=== PATIENT | female | born 1990 | race Two or more races ===

== ENCOUNTER 2016-10-16 18:13 | Emergency (ER) | payer SELFPAY ==
[~2016-10-16] VITALS: Ht 152.4 cm; Wt 49.9 kg
[2016-10-16 19:30] VITALS: BP 150/106
[2016-10-16 19:46] LABS: Urine Bilirubin Negative (Negative); Urine Blood Negative /uL (Negative); Urine Color Yellow (Yellow); Urine Glucose Normal (Normal); Urine Ketone Negative (Negative); Urine Mucus FEW (None Seen); Urine Nitrite Negative (Negative); Urine RBC 1 /hpf (0 - 4); Urine Squamous Epithelial Cell FEW /hpf (<5); Urine Urobilinogen Normal (Negative)
[2016-10-16 20:03] LABS: Basophils # (auto) 0 uL; Basophils % (auto) 0.5 % (0.0-2.0); CONDITION Y; Eosinophils # (auto) 0.1 uL; Eosinophils % (auto) 0.7 % (0.0-7.0); Hematocrit 42.9 % (36.0-46.0); Hemoglobin 14.1 g/dL (12.2-16.2); Lymphocytes # (auto) 1.6 uL; Lymphocytes % (auto) 18.5 % (10.0-50.0); Mean Corpuscular Hemoglobin 30.1 pg (28.0-32.0); Mean Corpuscular Hgb Conc. 32.8 g/dL (32.0-36.0); Mean Corpuscular Volume 91.8 fL (80.0-100.0); Mean Platelet Volume 8.8 fL (7.4-10.4); Monocytes # (auto) 0.5 uL; Monocytes % (auto) 5.9 % (0.0-12.0); Neutrophils # (auto) 6.3 uL; Neutrophils % (auto) 74.4 % (37.0-80.0); Platelet Count (auto) 362 10^3/uL (140-450); Red Cell Distribution Width 17.6 % (11.6-16.0); White Blood Cell 8.4 10^3/uL (4.4-10.8)
== END 2016-10-16 21:11 | disposition home or self-care (01) ==
LOC: ER 18:16
DX: N39.0 Urinary tract infection, site not specified (principal); F12.10 Cannabis abuse, uncomplicated
CPT/HCPCS: 36415; 81001; 84702; 85025

== ENCOUNTER 2017-02-12 02:43 | Emergency (ER) | payer MEDICAID ==
[~2017-02-12] VITALS: Ht 152.4 cm; Wt 54.4 kg
[2017-02-12 05:00] VITALS: BP 140/80
== END 2017-02-12 05:30 | disposition home or self-care (01) ==
LOC: ER 02:47
DX: L03.116 Cellulitis of left lower limb (principal); Z90.89 Acquired absence of other organs

== ENCOUNTER 2017-06-02 22:10 | Emergency (ER) | payer MEDICAID ==
[~2017-06-02] VITALS: Ht 152.4 cm; Wt 54.4 kg
[2017-06-02 22:47] VITALS: BP 156/91
[2017-06-02 23:18] LABS: Basophils # (auto) 0 uL; Basophils % (auto) 0.3 % (0.0-2.0); Eosinophils # (auto) 0 uL; Eosinophils % (auto) 0.1 % (0.0-7.0); Hematocrit 37.3 % (36.0-46.0); Hemoglobin 12.2 g/dL (12.2-16.2); Lymphocytes # (auto) 0.8 uL; Lymphocytes % (auto) 6.1 % (10.0-50.0); Mean Corpuscular Hemoglobin 29.8 pg (28.0-32.0); Mean Corpuscular Hgb Conc. 32.8 g/dL (32.0-36.0); Mean Corpuscular Volume 90.9 fL (80.0-100.0); Monocytes # (auto) 0.9 uL; Monocytes % (auto) 6.3 % (0.0-12.0); Neutrophils % (auto) 87.2 % (37.0-80.0); Platelet Count (auto) 352 10^3/uL (140-450); Red Blood Cells 4.11 10^6/uL (4.0-5.20); Red Cell Distribution Width 16.3 % (11.8-14.3); White Blood Cell 13.8 10^3/uL (4.4-10.8)
[2017-06-02 23:37] LABS: Albumin 3.8 g/dL (3.4-5.0); BUN/Creatinine Ratio 12.5; Calcium 8.8 mg/dL (8.5-10.1); Potassium 3.9 mmol/L (3.5-5.1)
[2017-06-02 23:40] LABS: Bilirubin, Total 0.8 mg/dL (0.2-1.0); Total Protein 7.6 g/dL (6.4-8.2)
[2017-06-03 01:42] LABS: Urine Bacteria MANY /hpf (None Seen); Urine Blood Negative /uL (Negative); Urine Mucus FEW (None Seen); Urine Specific Gravity 1.023 (1.001-1.035); Urine WBC 15 /hpf (0 - 5)
[2017-06-03 01:44] LABS: Alcohol, Urine < 3.0 mg/dL (0-5); Amphetamine Screen, Urine POSITIVE (NEGATIVE); Barbiturate Scree,Urine NEGATIVE (NEGATIVE); Benzodiazephine Screen, Urine NEGATIVE (NEGATIVE); Cannabinoid Screen, Urine POSITIVE (NEGATIVE); Cocaine Screen, Urine NEGATIVE (NEGATIVE); Opiate Scree,Urine NEGATIVE (NEGATIVE); Phencyclidine Screen, Urine NEGATIVE (NEGATIVE)
== END 2017-06-03 02:01 | disposition left against medical advice (07) ==
LOC: EDBD 22:10 → ER 22:21
DX: N39.0 Urinary tract infection, site not specified (principal); N20.0 Calculus of kidney; F15.10 Other stimulant abuse, uncomplicated; F12.10 Cannabis abuse, uncomplicated; F17.210 Nicotine dependence, cigarettes, uncomplicated
CPT/HCPCS: 36415; 74176; 80053; 80307; 81001; 82150; 83690; 84702; 85025

== ENCOUNTER 2019-05-19 20:25 | Emergency (ER) | payer MEDICAID ==
[~2019-05-19] VITALS: Ht 165.1 cm; Wt 55.8 kg
[2019-05-19 20:30] VITALS: BP 140/95
== END 2019-05-20 01:35 | disposition left against medical advice (07) ==
LOC: EDBD 20:25 → ER 20:26
DX: R05 Cough (principal); Z53.21 Procedure and treatment not carried out due to patient leaving prior to being seen by health care provider

== ENCOUNTER 2019-08-16 22:42 | Emergency (ER) | payer MEDICAID ==
[~2019-08-16] VITALS: Ht 152.4 cm; Wt 49.9 kg
[2019-08-16 23:16] VITALS: BP 145/98
[2019-08-16 23:57] LABS: Basophils # (auto) 0 10 ^3/uL (0-0.2); Basophils % (auto) 0.3 % (0.0-2.0); Eosinophils # (auto) 0.1 10 ^3/uL (0-0.8); Eosinophils % (auto) 1.1 % (0.0-7.0); Hemoglobin 13.7 g/dL (12.2-16.2); Lymphocytes # (auto) 1.7 10 ^3/uL (0.4-5.4); Lymphocytes % (auto) 18.6 % (10.0-50.0); Mean Corpuscular Hemoglobin 28.2 pg (28.0-32.0); Mean Corpuscular Hgb Conc. 31.8 g/dL (32.0-36.0); Mean Corpuscular Volume 88.9 fL (80.0-100.0); Monocytes # (auto) 0.6 10 ^3/uL (0-1.3); Neutrophils # (auto) 6.7 10 ^3/uL (1.6-8.6); Platelet Count (auto) 395 10^3/uL (140-450); Red Blood Cells 4.84 10^6/uL (4.0-5.20); Red Cell Distribution Width 17.5 % (11.8-14.3); White Blood Cell 9.2 10^3/uL (4.4-10.8)
[2019-08-17 00:25] LABS: BUN/Creatinine Ratio 12.5; Calcium 8.8 mg/dL (8.5-10.1); Potassium 4.1 mmol/L (3.5-5.1)
== END 2019-08-17 02:00 | disposition left against medical advice (07) ==
LOC: ER 22:42
DX: R10.84 Generalized abdominal pain (principal); Z53.21 Procedure and treatment not carried out due to patient leaving prior to being seen by health care provider
CPT/HCPCS: 36415; 74176; 80048; 85025

== ENCOUNTER 2020-10-12 19:16 | Emergency (ER) | payer MEDICAID ==
[~2020-10-12] VITALS: Ht 152.4 cm; Wt 56.7 kg
[2020-10-12] MEDS ORDERED: SODIUM CHLORIDE 0.9% 1,000 ML IV ONE (19:30)
[2020-10-12 19:48] VITALS: BP 152/104
[2020-10-12 19:54] LABS: Basophils # (auto) 0.1 10 ^3/uL (0-0.2); Basophils % (auto) 0.8 % (0.0-2.0); Eosinophils # (auto) 0.1 10 ^3/uL (0-0.8); Hematocrit 38.8 % (36.0-46.0); Hemoglobin 13.4 g/dL (12.2-16.2); Lymphocytes # (auto) 1.7 10 ^3/uL (0.4-5.4); Lymphocytes % (auto) 21.7 % (10.0-50.0); Mean Corpuscular Hemoglobin 31.4 pg (28.0-32.0); Mean Corpuscular Hgb Conc. 34.5 g/dL (32.0-36.0); Mean Corpuscular Volume 90.9 fL (80.0-100.0); Monocytes # (auto) 0.7 10 ^3/uL (0-1.3); Monocytes % (auto) 8.4 % (0.0-12.0); Neutrophils # (auto) 5.3 10 ^3/uL (1.6-8.6); Neutrophils % (auto) 68.1 % (37.0-80.0); Red Blood Cells 4.26 10^6/uL (4.0-5.20); Red Cell Distribution Width 15.1 % (11.8-14.3); White Blood Cell 7.8 10^3/uL (4.4-10.8)
[2020-10-12 20:12] LABS: Anion Gap 5 (5-15); Blood Urea Nitrogen 13 mg/dL (7-18); Carbon Dioxide 23 mmol/L (21-32); Chloride 112 mmol/L (98-107); Glucose 83 mg/dL (74-106); Potassium 4.1 mmol/L (3.5-5.1); Sodium 140 mmol/L (136-145)
[2020-10-12 20:19] LABS: Alanine Aminotransferase 13 U/L (13-56); Alkaline Phosphatase 82 U/L (45-117); Aspartate Aminotransferase 13 U/L (15-37); BUN/Creatinine Ratio 16.7; Bilirubin, Total 0.4 mg/dL (0.2-1.0); GFR African American 112 mL/min; GFR Non-African American 92 mL/min; Total Protein 7.8 g/dL (6.4-8.2)
[2020-10-12 21:17] LABS: Alcohol, Urine < 3.0 mg/dL (0-10); Amphetamine Screen, Urine POSITIVE (NEGATIVE); Barbiturate Scree,Urine NEGATIVE (NEGATIVE); Benzodiazephine Screen, Urine NEGATIVE (NEGATIVE); Cannabinoid Screen, Urine POSITIVE (NEGATIVE); Cocaine Screen, Urine NEGATIVE (NEGATIVE); Opiate Scree,Urine NEGATIVE (NEGATIVE); Phencyclidine Screen, Urine NEGATIVE (NEGATIVE)
== END 2020-10-12 21:25 | disposition home or self-care (01) ==
LOC: ER 19:16 → EDBD 19:16 → ER 21:25
DX: R55 Syncope and collapse (principal); R07.89 Other chest pain; F17.210 Nicotine dependence, cigarettes, uncomplicated; F12.10 Cannabis abuse, uncomplicated; F15.10 Other stimulant abuse, uncomplicated; Z90.89 Acquired absence of other organs
CPT/HCPCS: 36415; 80053; 80307; 81025; 84484; 85025; 85049; 93005; 96360; 99284; J7030

== ENCOUNTER 2024-02-16 21:36 | Emergency (ER) | payer MEDICAID ==
[~2024-02-16] VITALS: Ht 170.2 cm; Wt 59.0 kg
--- NOTE | 2024-02-16 22:08 | ED.PDOC ---
History of Present Illness(SKN HPI Comments 33 y.o female presents to the ED via EMS for an evaluation of a dog bite. Per triage nurse, patient came in s/p brother's dog bit her left index finger and latched on for a couple of minutes. Nurse reports that EMS gave 100mcg of Fentanyl en route. Patient is updated on her tetanus shot. No bleeding, disc harge, fever, or chills reported. No medical history reported. Vital signs were stable at arrival. Chief Complaint: Animal Bite Time Seen by MD: 22:00 Primary Care Provider: Contreras Garcia History of Present Illness: Nurses Notes, Patent Drafter Notes, Medications, Allergies Allergies: Coded Allergies: NO KNOWN ALLERGIES (Unverified , 09/04/15) Home Meds No Active Prescriptions or Reported Meds Information Source: Emergency Med Personnel Mode of Arrival: EMS Severity: Mild, Moderate Timing: Hours Duration: Since onset Prehospital treatment: None Location: Hand Mechanism: Dog Wound Type: Puncture Immunization Status of Animal: Unknown Tetanus: UTD Associated Signs and Symptoms: Swelling Past Medical History PAST MEDICAL HISTORY: Denies Surgical History: Appendectomy CONTROL SYSTEMS SPECIALIST History: No Pertinent CONTROL SYSTEMS SPECIALIST History Family History Family History: Family hx of DM, Family hx of Cancer, Family hx of heart ruben Social History Smoker: Cigarettes, Greater Than 1 Pack/Day Alcohol: Denies ETOH Use Drugs: Marijuana, Methamphetamine Lives In: Home Constitutional: denies: chills, diaphoresis, fatigue, fever, malaise, sweats, weakness, others EENTM: denies: blurred vision, double vision, ear bleeding, ear discharge, ear drainage, ear pain, ear ringing, eye pain, eye redness, hearing loss, mouth pain, mouth swelling, nasal discharge, nose bleeding, nose congestion, nose pain, photophobia, tearing, throat pain, throat swelling, voice changes, others Respiratory: denies: cough, hemoptysis, orthopnea, SOB at rest, shortness of breath, SOB with excertion, stridor, wheezing, others Cardiovascular: denies: chest pain, dizzy spells, diaphoresis, Dyspnea on exertion, edema, irregular heart beat, left arm pain, lightheadedness, palpit ations, PND, syncope, others Gastrointestinal: denies: abdomen distended, abdominal pain, blood streaked b owels, constipated, diarrhea, dysphagia, difficulty swallowing, hematemesis, melena, nausea, poor appetite, poor fluid intake, rectal bleeding, rectal pain, vomiting, others Genitourinary: denies: abnormal vagina bleeding, burning, dyspareunia, dysuria, flank pain, frequency, hematuria, incontinence, pain, , vagina discharge, urgency, others Neurological: denies: dizziness, fainting, headache, left sided numbness, left sided weakness, numbness, paresthesia, pre-existing deficit, right sided numbness, right sided weakness, seizure, speech problems, tingling, tremors, weakness, others Musculoskeletal: denies: back pain, gout, joint pain, joint swelling, muscle pain, muscle stiffness, neck pain, others Integumetry: reports: others (left index finger bite); denies: bruises, change in color, change in hair/nails, dryness, laceration, lesions, lumps, rash, wounds Allergic/Immunocompromised: denies: Difficulty Healing, Frequent Infections, Hives, Itching, others Hematologic/Lymphatic: denies: anemia, blood clots, easy bleeding, easy bruising, swollen glands, others Endocrine: denies: excessive hunger, excessive sweating, excessive thirst, excessive urination, flushing, intolerance to cold, intolerance to heat, un explained weight gain, unexplained weight loss, others Psychiatric: denies: anxiety, bipolar disorder, depression, hopeless, panic disorder, schizophrenia, sleepless, suicidal, others All Other Systems: Reviewed and Negative Physical Exam General Appearance: Mild Distress (Due to dog bite concerns.), Normal HEENT: Normal ENT Inspection, Pharynx Normal, TMs Normal Neck: Full Range of Motion, Non-Tender, Normal, Normal Inspection Respiratory: Chest Non-Tender, Lungs Clear, No Accessory Muscle Use, No Respiratory Distress, Normal Breath Sounds Cardiovascular: No Edema, No JVD, No Murmur, No Gallop, Normal Peripheral Pulses, Regular Rate/Rhythm Breast Exam: Deferred Gastrointestinal: No Organomegaly, Non Tender, No Pulsatile Mass, Normal Bowel Sounds, Soft Genitalia: Deferred Pelvic: Deferred Rectal: Deferred Extremities: No calf tenderness, Normal capillary refill, Normal inspection, Normal range of motion, Non-tender, No pedal edema Neurologic: Alert, operations officer afloat II-XII nml as Tested, No Motor Deficits, Normal Affect, Normal Mood, No Sensory Deficits Cerebellar Function: Normal Reflexes: Normal Skin: Other (Abrasion/laceration noted to the distal right index finger with a ecchymosis on the nail. No active bleed. Minimal edema.) Lymphatic: No Adenopathy Was a procedure done? Was a procedure done?: No Differential Diagnosis (INTG) Differential Diagnosis: Other (Dog bite) X-Ray, Labs, Meds, VS Vital Signs Date Time Temp Pulse Resp B/P (MAP) Pulse Ox O2 Delivery O2 Flow Rate FiO2 02/16/24 21:45 98.9 92 18 160/102 (121) 92 X-Ray, Labs, Meds, VS Comment Patient's dog bite was inconsequential and did not require additional intervention. Clean dressing applied and patient was given her 1st dose of antibiotics. Time of 1ST Reevaluation: 23:26 Reevaluation 1ST: Improved Consultation: PCP Patient Education/Counseling: Diagnosis, Treatment, Prognosis Family Education/Counseling: Diagnosis, Treatment, No Family Present Departure 1 Departure Time of Disposition: 23:27 Impression: Primary Impression: Dog bite Disposition: HOME / SELF CARE / HOMELESS Condition: Stable Additional Instructions: Advised patient utilize antibiotics as directed until completion as well as pain medication as needed. Patient should keep the wound clean and dressed until it has healed appropriately. e-Prescriptions Acetaminophen (Acetaminophen) 500 Mg Tab 500 MG PO Q4HP PRN, #20 TAB Prov: NEELAM NUNN PAC 02/16/24 Amoxicillin & Pot Clavulanate (AUGMENTIN TABLET) 875 Mg Tb 875 MG PO BID for 7 Days, #14 TAB Prov: NEELAM NUNN PAC 02/16/24 Discharged With: Self, Friend Critical Care Note Critical Care Time?: No Stability Stability form required: No I personally scribed for NEELAM NUNN PAC ([email or web address]) on 02/16/24 at 22:08. Electronically submitted by Cheryle Cartagena ([facility]). NEELAM NUNN PAC Feb 16, 2024 22:08
[2024-02-16] MEDS: AMOXICILLIN/CLAVUL 875 MG TAB PO ONE (23:25)
[2024-02-16 23:26] VITALS: BP 142/88; PULSE 92; RESP 18; TEMP 98.3; O2SAT 100
[2024-02-16] MEDS ORDERED: AUG875T PO (23:28)
[2024-02-16] MEDS ORDERED: ACET500T58 PO (23:28)
== END 2024-02-16 23:36 | disposition home or self-care (01) ==
LOC: EDBD 21:36 → ER 21:36
DX: S61.210A Laceration without foreign body of right index finger without damage to nail, initial encounter (principal); F17.210 Nicotine dependence, cigarettes, uncomplicated; F15.90 Other stimulant use, unspecified, uncomplicated; Z90.49 Acquired absence of other specified parts of digestive tract; W54.0XXA Bitten by dog, initial encounter; Y93.89 Activity, other specified; Y92.89 Other specified places as the place of occurrence of the external cause; Y99.8 Other external cause status

== ENCOUNTER 2024-05-29 05:52 | Emergency (ER) | payer MEDICAID ==
[~2024-05-29] VITALS: Ht 152.4 cm; Wt 57.5 kg
[~2024-05-29 05:52] MED LIST: ACET500T58 PO; AUG875T PO
[2024-05-29] MEDS ORDERED: CIPR1SUS8 OT (06:58)
[2024-05-29] MEDS ORDERED: AUG875T PO (06:58)
--- NOTE | 2024-05-29 06:58 | ED.PDOC ---
Eye-HPI HPI Comments 34-year-old female with no MHx presents with a chief complaint of left ear otalgia x1 day Pain rated moderate to severe and has not tried medications for the symptoms listed above Pain described as persistent throbbing No other complaint or concern Denies high fevers diplopia headache Denies blunt trauma (hand blow to the ear, fall, direct hit) Denies penetrating trauma (Q-tip use, match-stick, gunshot wound, welding spark) Denies ear trauma Denies barotrauma Denies blast injury Denies air travel Denies scuba diving Denies hearing loss Denies persistent ringing in the ear Denies fever chills night sweats unintentional weight loss Denies nausea vomiting severe headache or recent vision changes Chief Complaint: Earache Time Seen by MD: 06:29 Primary Care Provider: Contreras Garcia Reviewed Notes: Nurses Notes, Medications, Allergies Allergies: Coded Allergies: NO KNOWN ALLERGIES (Unverified , 09/04/15) Home Meds Active Scripts Amoxicillin & Pot Clavulanate (AUGMENTIN TABLET) 875 Mg Tb, 875 MG PO BID for 7 Days, #14 TAB 0 Refills Prov:GINNA NICOLE PNEUDRAULIC SYSTEMS MECHANIC 05/29/24 Ciprofloxacin-Dexamethasone (Ciprofloxacin/Dexamethaso 0.3-0.1 %) 1 Veronica Veronica, 4 DROP OT BID for 7 Days, #5 ML 0 Refills Prov:GINNA NICOLE PNEUDRAULIC SYSTEMS MECHANIC 05/29/24 Acetaminophen (Acetaminophen) 500 Mg Tab, 500 MG PO Q4HP PRN, #20 TAB Prov:NEELAM NUNN PAC 02/16/24 Amoxicillin & Pot Clavulanate (AUGMENTIN TABLET) 875 Mg Tb, 875 MG PO BID for 7 Days, #14 TAB Prov:NEELAM NUNN PAC 02/16/24 Mode of Arrival: Ambulatory Past Medical History PAST MEDICAL HISTORY: Denies Surgical History: Appendectomy AIR DISPATCHER History: No Pertinent AIR DISPATCHER History Family History Family History: Family hx of DM, Family hx of Cancer, Family hx of heart ruben Social History Smoker: Cigarettes, Greater Than 1 Pack/Day Alcohol: Denies ETOH Use Drugs: Marijuana, Methamphetamine Lives In: Home All Other Systems: Reviewed and Negative (Per HPI) Physical Exam General Appearance: No Apparent Distress, Normal HEENT: Normal ENT Inspection, Pharynx Normal, TM Abnormal (L) (Pre post auricular lymphadenopathy, erythema, swelling. No pain to the tragus on palpation. No signs of mastoiditis. Nose clear however tympanic membrane is erythematous bulging. EOM intact..) Neck: Full Range of Motion, Non-Tender, Normal, Normal Inspection Respiratory: Chest Non-Tender, Lungs Clear, No Accessory Muscle Use, No Respiratory Distress, Normal Breath Sounds Cardiovascular: No Edema, No JVD, No Murmur, No Gallop, Normal Peripheral Pulses, Regular Rate/Rhythm Breast Exam: Deferred Gastrointestinal: No Organomegaly, Non Tender, No Pulsatile Mass, Normal Bowel Sounds, Soft Genitalia: Deferred Pelvic: Deferred Rectal: Deferred Extremities: No calf tenderness, Normal capillary refill, Normal inspection, Normal range of motion, Non-tender, No pedal edema Musculoskeletal : Apperance: Normal Neurologic: Alert, carpenter II-XII nml as Tested, No Motor Deficits, Normal Affect, Normal Mood, No Sensory Deficits Cerebellar Function: Normal Reflexes: Normal Skin: Dry, Normal Color, Warm Lymphatic: No Adenopathy Was a procedure done? Was a procedure done?: No EENT DIFF Eye: Other Ear: Cerumen Impaction, Foreign Body, Otitis Media, Perforation X-Ray, Labs, Meds, VS Vital Signs Date Time Temp Pulse Resp B/P (MAP) Pulse Ox O2 Delivery O2 Flow Rate FiO2 05/29/24 07:23 98.4 101 20 152/94 (113) 98 98.4 05/29/24 07:23 101 20 98 Room Air 05/29/24 06:13 98.4 11 20 164/110 (128) 98 Current Medications Medications (Trade) Dose Ordered Sig/Fede Route Start Time Stop Time Status Last Admin Acetaminophen/ Hydrocodone Bitart (Warren 5/325MG Tab) 1 tab ONCE ONCE PO 05/29/24 07:00 05/29/24 07:01 DC 05/29/24 07:15 X-Ray, Labs, Meds, VS Comment Urticarial presents with a chief complaint of left ear otalgia Differentials considered but not limited to bullous myringitis, eustachian tube dysfunction, cholesteatoma, mastoiditis, meningitis. Exam and history are most consistent with Acute Otitis Media. No diabetes, immunosuppression. Rx: Augmentin In the ER patient received Warren x1 for pain relief with no side effects. On reevaluation, patient had symptomatic improvement. Patient is stable for discharge at this time. External notes reviewed. Test results and diagnostic imaging interpreted. All diagnostic findings, discharge care, education and instructions provided Follow-up with PCP in 2 to 3 days Patient verbalized understanding and agreed to treatment plan Vital signs stable, afebrile, no acute distress noted Patient ambulatory with strong steady gait Advised to return precautions for any new or worsening symptoms, return to ER immediately for re-evaluation Patient is aware that the purpose of this visit was for an acute medical emergency requiring emergent stabilization. Chronic conditions, including malignancies have not been ruled out. Patient is instructed to follow up with PCP as directed and discharge instructions for continued care and workup. If unable to arrange follow-up, patient is to return to the emergency department for reassessment. Patient (parent or legal guardian if applicable) was given verbal and written discharge instructions and acknowledges understanding. Time of 1ST Reevaluation: 06:45 Reevaluation 1ST: Improved Patient Education/Counseling: Diagnosis, Treatment Family Education/Counseling: Diagnosis, Treatment Departure 1 Departure Time of Disposition: 06:57 Impression: Primary Impression: AOM (acute otitis media) Qualified Codes: H66.002 - Acute suppurative otitis media without spontaneous rupture of ear drum, left ear Disposition: 01 HOME / SELF CARE / HOMELESS Condition: Stable e-Prescriptions Amoxicillin & Pot Clavulanate (AUGMENTIN TABLET) 875 Mg Tb 875 MG PO BID for 7 Days, #14 TAB 0 Refills Prov: GINNA NICOLE NP 05/29/24 Ciprofloxacin-Dexamethasone (Ciprofloxacin/Dexamethaso 0.3-0.1 %) 1 Veronica Veronica 4 DROP OT BID for 7 Days, #5 ML 0 Refills Prov: GINNA NICOLE PNEUDRAULIC SYSTEMS MECHANIC 05/29/24 Critical Care Note Critical Care Time?: No Stability Stability form required: No Heart Score Heart Score: Heart Score Response (Comments) Value History N/A 0 EKG N/A 0 Age N/A 0 Risk Factors N/A 0 Troponin N/A 0 Total 0 GINNA NICOLE NP May 29, 2024 06:58
[2024-05-29] MEDS: HYDROcodone-ACET 5/325MG TAB PO ONE (07:15)
[2024-05-29 07:23] VITALS: BP 152/94; PULSE 101; RESP 20; TEMP 98.4; O2SAT 98
== END 2024-05-29 07:26 | disposition home or self-care (01) ==
LOC: ER 05:52
DX: H66.92 Otitis media, unspecified, left ear (principal); F17.210 Nicotine dependence, cigarettes, uncomplicated; Z90.49 Acquired absence of other specified parts of digestive tract; Z79.2 Long term (current) use of antibiotics; Z79.899 Other long term (current) drug therapy

== ENCOUNTER 2024-05-29 21:16 | Emergency (ER) | payer MEDICAID ==
[~2024-05-29] VITALS: Ht 160 cm; Wt 63.6 kg
[~2024-05-29 21:16] MED LIST changes: +CIPR1SUS8 OT
[2024-05-29 21:33] VITALS: BP 181/116; RESP 24; O2SAT 95
[2024-05-29] MEDS ORDERED: cefTRIAXone 1GM/50ML D5W 50 ML IV ONE (21:45)
[2024-05-29] MEDS ORDERED: SODIUM CHLORIDE 0.9% 1,000 ML IV ONE (21:45)
[2024-05-29] MEDS ORDERED: KETOROLAC TROMETH 30 MG/ML 1ML VIAL IV ONE (21:45)
[2024-05-29 21:59] LABS: Basophils # (auto) 0 10 ^3/uL (0-0.2); Basophils % (auto) 0.5 % (0.0-2.0); Eosinophils # (auto) 0.1 10 ^3/uL (0-0.8); Eosinophils % (auto) 0.8 % (0.0-7.0); Hematocrit 38.4 % (36.0-46.0); Hemoglobin 12.6 g/dL (12.2-16.2); Lymphocytes # (auto) 1.5 10 ^3/uL (0.4-5.4); Lymphocytes % (auto) 17.3 % (10.0-50.0); Mean Corpuscular Hemoglobin 29.8 pg (28.0-32.0); Mean Corpuscular Hgb Conc. 32.8 g/dL (32.0-36.0); Mean Corpuscular Volume 90.8 fL (80.0-100.0); Monocytes # (auto) 0.8 10 ^3/uL (0-1.3); Monocytes % (auto) 8.7 % (0.0-12.0); Neutrophils # (auto) 6.4 10 ^3/uL (1.6-8.6); Neutrophils % (auto) 72.7 % (37.0-80.0); Nucleated Red Blood Cells % 0.1 %; Platelet Count (auto) 380 10^3/uL (140-450); Red Blood Cells 4.23 10^6/uL (4.0-5.20); Red Cell Distribution Width 15.1 % (11.8-14.3); White Blood Cell 8.9 10^3/uL (4.4-10.8)
[2024-05-29 22:10] LABS: Anion Gap 10 (5-15); Carbon Dioxide 23 mmol/L (20-31); Chloride 106 mmol/L (98-107); Potassium 4.4 mmol/L (3.5-5.1); Sodium 139 mmol/L (136-145)
[2024-05-29 22:11] LABS: Calcium 9.8 mg/dL (8.7-10.4)
[2024-05-29 22:16] LABS: BUN/Creatinine Ratio 14.3 (10.0-20.0); Blood Urea Nitrogen 11 mg/dL (9-23); Glucose 105 mg/dL (74-106)
[2024-05-29 22:18] LABS: Blood Alcohol < 3.0 mg/dL (<10)
[2024-05-29 23:13] VITALS: PULSE 78
--- NOTE | 2024-05-29 23:13 | ED.PDOC ---
History of Present Illness HPI Comments 34 y/o F with a history of polysubstance abuse BIBA for c/o ALOC today. Per EMS report, patient's family called after finding the patient with altered mental status, but is unclear exactly what was exhibited. EMS reports the patient was found alert, oriented x4 and complaining of chest discomfort. Patient was noted to be tachycardic. She states she took 3 tramadol and 1 Keeling due to pain in her left ear. Patient reports being in the ED yesterday for the ear pain and being diagnosed with an ear infection. Patient also reports having palpitations and shortness of breath in addition to left-ear pain. Patient denies having any chest pain, nausea, vomiting, fever, chills, weakness, or other associated symptoms or modifiers at this time. Chief Complaint: Palpitations Time Seen by MD: 21:30 Primary Care Provider: Contreras Garcia Reviewed Notes: Nurses Notes, Printing Supplies Sales Representative Notes, Medications, Allergies Allergies: Coded Allergies: NO KNOWN ALLERGIES (Unverified , 09/04/15) Home Meds Active Scripts Amoxicillin & Pot Clavulanate (AUGMENTIN TABLET) 875 Mg Tb, 875 MG PO BID for 7 Days, #14 TAB 0 Refills Prov:GINNA NICLOE TICKETING AGENT 05/29/24 Ciprofloxacin-Dexamethasone (Ciprofloxacin/Dexamethaso 0.3-0.1 %) 1 Veronica Veronica, 4 DROP OT BID for 7 Days, #5 ML 0 Refills Prov:GINNA NICOLE TICKETING AGENT 05/29/24 Acetaminophen (Acetaminophen) 500 Mg Tab, 500 MG PO Q4HP PRN, #20 TAB Prov:NEELAM NUNN PAC 02/16/24 Amoxicillin & Pot Clavulanate (AUGMENTIN TABLET) 875 Mg Tb, 875 MG PO BID for 7 Days, #14 TAB Prov:NEELAM NUNN PAC 02/16/24 Information Source: Patient, Emergency Med Personnel Mode of Arrival: EMS Severity: Moderate Timing: Hours Duration: Minutes Prehospital treatment: 12 Lead EKG, Customer Account Coordinator, IVF, Other (20G RAC) Past Medical History PAST MEDICAL HISTORY: Denies Surgical History: Appendectomy MARKETING PROGRAMS MANAGER History: No Pertinent MARKETING PROGRAMS MANAGER History Family History Family History: Family hx of DM, Family hx of Cancer, Family hx of heart ruben Social History Smoker: Cigarettes, Greater Than 1 Pack/Day Alcohol: Denies ETOH Use Drugs: Marijuana, Methamphetamine Lives In: Home All Other Systems: Reviewed and Negative (Comprehensive systems review obtained and negative except for what is stated in the HPI.) Physical Exam General Appearance: No Apparent Distress HEENT: PERRL/EOMI, Other (Dry mucous membranes) Neck: Full Range of Motion, Normal Inspection Respiratory: Lungs Clear, No Accessory Muscle Use, No Respiratory Distress, Normal Breath Sounds Cardiovascular: No Edema, No JVD, Regular Rate/Rhythm Breast Exam: Deferred Gastrointestinal: Non Tender, Soft Genitalia: Deferred Pelvic: Deferred Rectal: Deferred Extremities: Normal inspection, Normal range of motion, Non-tender, No pedal edema Neurologic: Alert (Oriented x4), Normal Affect, Normal Mood, Other (Moves all extremities. No gross focal deficit.) Cerebellar Function: NOT DONE Reflexes: NOT DONE Skin: Dry, Normal Color, Warm Lymphatic: NOT DONE Was a procedure done? Was a procedure done?: No EKG EKG : Pulse Rate (adult): 78 Comments Sinus rhythm, rate 78, normal intervals, normal axis, normal QRS, no ST/T changes. Differential Dx Considerations may include: Medication side-effect/accidental over medication, alcohol intoxication, drug intoxication, other encephalopathy, among others X-Ray, Labs, Meds, VS Vital Signs Date Time Temp Pulse Resp B/P (MAP) Pulse Ox O2 Delivery O2 Flow Rate FiO2 05/29/24 23:13 78 05/29/24 21:37 78 05/29/24 21:33 98.0 101 24 181/116 (137) 95 Lab Test 05/29/24 22:41 05/29/24 21:44 Range/Units Troponin I High Sensitivity < 3 L < 3 L </=34 ng/L White Blood Count 8.9 4.4-10.8 10^3/uL Red Blood Count 4.23 4.0-5.20 10^6/uL Hemoglobin 12.6 12.2-16.2 g/dL Hematocrit 38.4 36.0-46.0 % Mean Corpuscular Volume 90.8 80.0-100.0 fL Mean Corpuscular Hemoglobin 29.8 28.0-32.0 pg Mean Corpuscular Hemoglobin Concent 32.8 32.0-36.0 g/dL Red Cell Distribution Width 15.1 H 11.8-14.3 % Platelet Count 380 140-450 10^3/uL Mean Platelet Volume 8.0 6.9-10.8 fL Neutrophils (%) (Auto) 72.7 37.0-80.0 % Lymphocytes (%) (Auto) 17.3 10.0-50.0 % Monocytes (%) (Auto) 8.7 0.0-12.0 % Eosinophils (%) (Auto) 0.8 0.0-7.0 % Basophils (%) (Auto) 0.5 0.0-2.0 % Neutrophils # (Auto) 6.4 1.6-8.6 10 ^3/uL Lymphocytes # (Auto) 1.5 0.4-5.4 10 ^3/uL Monocytes # (Auto) 0.8 0-1.3 10 ^3/uL Eosinophils # (Auto) 0.1 0-0.8 10 ^3/uL Basophils # (Auto) 0 0-0.2 10 ^3/uL Nucleated Red Blood Cells 0.1 % Sodium Level 139 136-145 mmol/L Potassium Level 4.4 3.5-5.1 mmol/L Chloride Level 106 98-107 mmol/L Carbon Dioxide Level 23 20-31 mmol/L Anion Gap 10 5-15 Blood Urea Nitrogen 11 9-23 mg/dL Creatinine 0.77 0.550-1.02 mg/dL Glomerular Filtration Rate Calc 104 >90 mL/min BUN/Creatinine Ratio 14.3 10.0-20.0 Serum Glucose 105 74-106 mg/dL Lactic Acid Level 2.0 0.4-2.0 mmol/L Calcium Level 9.8 8.7-10.4 mg/dL B-Type Natriuretic Peptide 9.37 0-100 pg/mL Beta HCG, Quantitative 0.3 L 1.5-4.2 mIU/mL Plasma/Serum Blood Alcohol < 3.0 <10 mg/dL PROCEDURE(s): CXRP - CHEST PORTABLE REASON: aloc ORDER NUMBER(s): [id number], ACCESSION NUMBER(s): [id number] CHEST RADIOGRAPH Indication: aloc Technique: Single frontal view of the chest was obtained COMPARISON: None FINDINGS: Lines and Tubes: None Lungs: Clear Pleura: No effusion. No pneumothorax. Cardiomediastinal contours: Unremarkable Bones: Unremarkable IMPRESSION: No abnormality. X-Ray, Labs, Meds, VS Comment 34-year-old female with a history of prior polysubstance abuse brought in by EMS from home after initially being found with altered mental status. On arrival to ED, patient is alert, oriented x4 and complaining of palpitations. Admits to taking 3 tramadol and 1 Keeling this morning. Vitals remarkable for heart rate 101, respiratory rate 24, BP 181/116 Exam remarkable for tachycardia Rhythm strip independently interpreted by me: Sinus tach, rate 101, no ectopy. Chest x-ray unremarkable CBC, metabolic panel, BNP and troponins unremarkable, hCG negative, alcohol less than 3 Patient treated with the following in the ED: 1 L 0.9 normal saline IV bolus, Rocephin 1 g IV for treatment of her ear infection, Toradol 30 mg IV for pain. Prior to my re-evaluation, the patient stated she went to wait any longer. She signed out against medical advice. I was not advised that the patient signed out against medical advice until after she had left the ED. Time of 1ST Reevaluation: 22:00 Reevaluation 1ST: Unchanged Patient Education/Counseling: Diagnosis, Treatment Family Education/Counseling: No Family Present Additional Information - I reviewed the following notes from patient's past medical encounters: previous ED visit on 05/29/24 - The following tests were ordered, and results were reviewed by me: EKG, troponin, lactic acid, blood alcohol, drug screen, beta-quant, BMP, UA, BNP, CBC, blood culture, CXR - Additional information was gathered from interviewing the following independent Historian: (Family, Other Providers, EMT) - I reviewed and agreed with the following test results read by other provider: CXR - I discussed treatments and results with medical personnel Departure 1 Departure Time of Disposition: 00:56 Impression: Primary Impression: Transient alteration of awareness Additional Impression: Accidental medication overdose Qualified Codes: T50.901A - Poisoning by unspecified drugs, medicaments and biological substances, accidental (unintentional), initial encounter Disposition: 07 LEFT AGAINST MEDICAL ADVICE Condition: Fair Critical Care Note Critical Care Time?: No Stability Stability form required: No Heart Score Heart Score: Heart Score Response (Comments) Value History Slightly Suspicious 0 EKG Normal 0 Age <45 0 Risk Factors 1 or 2 risk factors 1 Troponin Normal limit 0 Total 1 I personally scribed for KATINA ARAGON MD ([email or web address]) on 05/29/24 at 23:13. Electronically submitted by Dewayne Han ([email or web address]). KATINA ARAGON MD May 29, 2024 23:13
--- NOTE | 2024-05-30 00:31 | DVH ---
CHEST RADIOGRAPH Indication: aloc Technique: Single frontal view of the chest was obtained COMPARISON: None FINDINGS: Lines and Tubes: None Lungs: Clear Pleura: No effusion. No pneumothorax. Cardiomediastinal contours: Unremarkable Bones: Unremarkable IMPRESSION: No abnormality.
--- NOTE | 2024-05-31 10:33 | ECG ---
[facility] Test Date: 2024-05-29 Test Time: 21:37:03 Pat Name: NIYA LÓPEZ Department: ED Room: Gender: F Block Hand: LEONARDA : 1990 Requested By: KATINA HAMMOND Order Number: [id number] Reading MD: Italo Zavala Measurements Intervals Bard Rate: 78 P: 57 WV: 119 QRS: 58 QRSD: 90 T: 60 QT: 373 QTc: 425 Interpretive Statements Sinus rhythm Borderline short WV interval Electronically Signed On 05-31-2024 22:12:39 PST by Italo Zavala Please click the below link to view image of tracing.
== END 2024-05-30 00:56 | disposition left against medical advice (07) ==
LOC: EDBD 21:16 → ER 21:16
DX: T50.901A Poisoning by unspecified drugs, medicaments and biological substances, accidental (unintentional), initial encounter (principal); R40.4 Transient alteration of awareness; F17.210 Nicotine dependence, cigarettes, uncomplicated; F12.90 Cannabis use, unspecified, uncomplicated; F15.90 Other stimulant use, unspecified, uncomplicated; Z79.899 Other long term (current) drug therapy; Z90.49 Acquired absence of other specified parts of digestive tract
CPT/HCPCS: 36415; 71045; 80048; 80320; 83605; 83880; 84484; 84702; 85025; 87040; 93005